=== PATIENT | female | born 1950 | race Two or more races ===

== ENCOUNTER 2016-11-16 20:05 | Emergency (ER) | payer BC, OTHER ==
[~2016-11-16] VITALS: Ht 167.6 cm; Wt 87.5 kg
[2016-11-16 23:27] VITALS: BP 139/80
[2016-11-16] MEDS ORDERED: cefTRIAXone SOD 1,000 MG VL IM ONE (23:45)
[2016-11-17] MEDS ORDERED: TETANUS-DIPTH-ACEL PERTUSSIS 0.5ML SYRG IM ONE
== END 2016-11-17 00:15 | disposition home or self-care (01) ==
LOC: ER 20:05
DX: S61.451A Open bite of right hand, initial encounter (principal); E78.5 Hyperlipidemia, unspecified; G89.29 Other chronic pain; M54.9 Dorsalgia, unspecified; W55.01XA Bitten by cat, initial encounter; Y93.89 Activity, other specified; Y99.8 Other external cause status; Y92.89 Other specified places as the place of occurrence of the external cause
CPT/HCPCS: 90471; 90715; 96372; 99284; J0696